=== PATIENT | male | born 1980 | race Caucasian/White ===

== ENCOUNTER 2017-08-24 22:00 | Emergency (ER) | payer MEDICAID, SELFPAY ==
[2017-08-24 22:00] VITALS: BP 123/75; PULSE 67; RESP 18; TEMP 37.3; O2SAT 98; BMI 19.7
--- NOTE | 2017-08-24 22:50 | CT_ITS ---
STUDY: CT ABDOMEN AND PELVIS WITHOUT CONTRAST REASON FOR EXAM: Male, 36 years old. Right flank pain. RADIATION DOSAGE (If Supplied By Facility): CTDIvol = ( 6.04 ) mGy, DLP = ( 283.89 ) mGycm TECHNIQUE: Transaxial images were obtained from the dome of the diaphragm to the symphysis pubis without oral contrast, and without intravenous contrast. Sagittal and coronal images were reconstructed. Individualized dose optimization techniques were used for this CT. COMPARISON: None. FINDINGS: The visualized lung bases are unremarkable. The visualized portions of the heart are within normal limits. There is hepatomegaly with diffuse hepatic enlargement. The gallbladder is contracted. There are multiple benign calcified granulomata of the spleen. Normal pancreas. Normal bilateral adrenal glands. Normal right kidney. Normal left kidney. Normal visualized stomach. Normal small intestine. Normal colon. The appendix is visualized and appears normal. Normal abdominal aorta. Normal inferior vena cava. Normal retroperitoneum. Normal urinary bladder. There is no free fluid in the abdomen or pelvis. Normal abdominal wall. There is sclerosis of the sacroiliac joints. CT/Abdomen/Pelvis without Cont IMPRESSION: Hepatomegaly. Contracted gallbladder. No urinary stones or hydronephrosis. Electronically Signed: Isaac Edwards MD at 23:36 EDT , Service support ,
[2017-08-24] MEDS: Ketorolac 30 MG/ML Syringe IV (22:58)
[2017-08-24 23:04] LABS: Absolute Lymphocyte Count 2.31 X10^3/ul (0.83-4.51); Absolute Neutrophil Count 4.9 X10^3/uL (2.0-7.7); Basophil# 0.03 X10^3/uL; Basophil% 0.4 % (0-1); Eosinophil# 0.12 X10^3/uL; Eosinophils% 1.5 % (0-5); Hematocrit 38.6 % (40-54); Hemoglobin 12.5 g/dl (13.0-16.5); Lymphocyte # 2.31 X10^3/ul (4.0); Lymphocyte % 28.2 % (19-41); Mean Corp Hgb Conc 32.4 g/gl (32-36); Mean Corpuscular Hgb 27.1 pg (27.0-32.0); Mean Corpuscular Volume 83.7 fL (80-94); Mean Platelet Vol. 8.8 fl (6.2-12.0); Monocyte# 0.81 X10^3/uL; Monocyte% 9.9 % (0-10); Neutrophil # 4.89 X10^3/uL (2.7-7.7); Neutrophil % 59.8 % (47-70); Platelet Count 260 K/mm3 (150-450); RBC Distribution Width CV 14.3 % (11.6-14.6); Red Blood Count 4.61 M/mm3 (4.6-6.2); White Blood Count 8.2 K/mm3 (4.4-11.0)
[2017-08-24 23:06] LABS: POSITIVE COUNT NO; POSITIVE DIFFERENTIAL NO; POSITIVE MORPHOLOGY NO
[2017-08-24 23:16] LABS: Anion Gap 5 (5-15); BUN 10 mg/dL (7-18); BUN/Creat Ratio 10.9 RATIO (10-20); Calcium,Total 9.5 mg/dL (8.5-10.1); Chloride 106 mmol/L (98-107); Creatinine, Serum 0.92 mg/dL (0.70-1.30); EST Glomerular Filtration Rate 99 mL/min (>60); Est Glom Filt Rate - Afr Amer 119 mL/min (>60); Estimated Creatinine Clearance 92.32 ml/min; Glucose 93 mg/dL (74-106); Potassium 3.6 mmol/L (3.5-5.1); Sodium Level 142 mmol/L (136-145)
--- NOTE | 2017-08-24 23:55 | ED.VISSUMM ---
- ER Visit Summary Date of Service: 08/24/17 Chief Complaint: Right flank pain History of Present Illness: The patient is a 36 M who presents with right flank pain. This is been present for at least 2 months. He states it is worse with certain positions or laying on his side. It is isolated to the right lower back. This does not wrap around to the abdomen at all. He denies any nausea vomiting diarrhea dysuria frequency urgency. No fevers. Physical Examination: Afebrile vitals are normal Moist mucous membranes Heart regular rate and rhythm Lungs are clear Abdomen soft nontender Patient does have some right paraspinal lumbar tenderness Alert Test Results: CBC BMP notable for hemoglobin of 12.5. A urinalysis was ordered but the patient has not voided. CT of the flank shows hematocrit megaly and a contracted gallbladder otherwise normal. Emergency Department Course and Treatment: She was given Toradol here. 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 However his studies had returned. This does not show any acute surgical pathology he has a very benign abdomen and his symptoms have been present for 2 months. He was referred to family sent for outpatient follow-up. He understands to return for new or worsening symptoms. All questions answered bedside and the patient was discharged. Treatment Plan: [] Disposition: Discharge Impression: Right flank pain This note was generated with PureHistory dictation software. It may contain incorrect words, spelling, and punctuation that were not noted in review of the chart prior to signing ED Disposition - Plan for ED Patient: Chief Complaint: Flank Pain Referrals: Care Physician,No Primary [Primary Care Provider] -
--- NOTE | 2017-08-24 23:57 | ED.DEP ---
ED Disposition - Plan for ED Patient: Chief Complaint: Flank Pain Instructions: ED Flank Pain Uncertain Cause Referrals: Care Physician,No Primary [Primary Care Provider] - Jamal Ramos III, MD [STAFF PHYSICIAN] -
[2017-08-25 00:05] VITALS: BP 120/87; PULSE 67; RESP 16; O2SAT 97
== END 2017-08-25 00:06 | disposition home or self-care (01) ==
PROVIDERS: Emergency Provider Emergency Medicine
DX: R10.9 Unspecified abdominal pain (principal); M54.5 Low back pain; R16.0 Hepatomegaly, not elsewhere classified; K82.0 Obstruction of gallbladder; Z72.0 Tobacco use
CPT/HCPCS: 74176; 80048; 85025; 96374; 99283; J7030; A4216

== ENCOUNTER 2017-12-18 00:53 | Emergency (ER) | payer MEDICAID, SELFPAY ==
[2017-12-18 00:54] VITALS: BP 115/90; PULSE 86; RESP 18; TEMP 36.8; O2SAT 98; BMI 20.7
--- NOTE | 2017-12-18 01:15 | ED.DCSUM_ITS ---
History of Present Illness Chief Complaint: Eye Problem Informant: Patient Onset: Today - 1 hr ago noticed Context: Sudden Onset Timing: Continuous Quality: FB sens Location: right eye Current Severity: Mild Maximum Severity: Mild Worsened by: rubbing Relieved by: nothing Associated Symptoms: watering. no vision chg. Narrative: no contacts. [place] I discomfort when he was going to bed, noticed a piece of grass in his eye when he looked in the mirror. Unknown how it got there, possibly when he was driving with the windows open on the way home, a piece of grass fluid and. Past Medical History - Allergies and Home Meds Allergies/Adverse Reactions: Allergies No Known Allergies Allergy (Verified 08/24/17 22:01) Primary Care Physician: Care Physician,No Primary [Primary Care Provider] - Past Medical History: None Smoking Status: Never smoker Review of Systems General: Denies: Fever Eyes: Denies: Visual changes - bilaterally, Diplopia Physical Exam Vital Signs/Narrative: Vital Signs Temp Pulse Resp BP Pulse Ox 12/18/17 00:54 98.3 F 86 18 115/90 H 98 Inital Vital Signs reviewed: Yes General: Well nourished, Well developed Head: Normocephalic, Atraumatic Eyes: Perrl, EOMI, - - Nursing removed a small piece of grass from the patient' s eye prior to my evaluation. Grossly the eye is normal. The eyelid was everted. No residual foreign bodies. Slit-lamp exam performed with and without fluorescein. Anterior chamber deep and quiet. No dye uptake on the cornea. Negative Olvin sign. No significant conjunctival dye uptake. No residual foreign bodies. Skin: Normal color, No rash Neurological: Alert, Oriented x3, Cranial nerves II-XII grossly intact, Normal Strength, Normal Sensation, Normal Gait Diagnostic/Tx/Re-eval - Medical Decision Making Patient reassured. No need for antibiotic ointment or ophthalmologic follow-up unless he has delayed onset of vision problems. ED Disposition - Plan for ED Patient: Disposition: Home or Assisted Living Chief Complaint: Eye Problem Diagnosis: Foreign body of right eye Instructions: ED Foreign Body Cornea Referrals: Jacqui Jimenez MD [STAFF PHYSICIAN] - As Needed
[2017-12-18] MEDS: Fluorescein 1 MG STRIP 1 STRIP RIGHT EYE (01:20)
== END 2017-12-18 01:23 | disposition home or self-care (01) ==
LOC: ED 01:22
PROVIDERS: Emergency Provider Emergency Medicine
DX: T15.01XA Foreign body in cornea, right eye, initial encounter (principal); W45.8XXA Other foreign body or object entering through skin, initial encounter; Y93.9 Activity, unspecified; Y92.89 Other specified places as the place of occurrence of the external cause; Y99.9 Unspecified external cause status
CPT/HCPCS: 99282

== ENCOUNTER 2022-06-28 19:45 | Inpatient (IN) | payer MEDICAID, SELFPAY ==
[2022-06-28 19:46] VITALS: BP 114/82; PULSE 77; RESP 18; TEMP 36.3; O2SAT 100; BMI 22.4
[2022-06-28 19:48] VITALS: BP 114/82; PULSE 77; RESP 18; TEMP 36.3; O2SAT 100
[2022-06-28 20:24] LABS: Absolute Lymphocyte Count 2.07 X10^3/uL (0.83-4.51); Absolute Neutrophil Count 5.1 X10^3/uL (2.0-7.7); Basophil# 0.04 X10^3/uL; Basophil% 0.5 % (0-1); Eosinophil# 0.28 X10^3/uL; Eosinophils% 3.3 % (0-5); Hematocrit 42.9 % (40-54); Hemoglobin 13.2 g/dL (13.0-16.5); Lymphocyte # 2.07 X10^3/ul (0.83-4.51); Lymphocyte % 24.4 % (19-41); Mean Corp Hgb Conc 30.8 g/dL (32-36); Mean Corpuscular Volume 84.6 fL (80-94); Mean Platelet Vol. 8.8 fl (6.2-12.0); Monocyte# 0.93 X10^3/uL; NRBC Flagged by Analyzer 0 % (0-5); Neutrophil # 5.12 X10^3/uL (2.7-7.7); Neutrophil % 60.3 % (47-70); Platelet Count 342 K/mm3 (150-450); RBC Distribution Width CV 15.9 % (11.6-14.6); RBC Distribution Width SD 49.6 fl (35.1-43.9); Red Blood Count 5.07 M/mm3 (4.6-6.2); White Blood Count 8.5 K/mm3 (4.4-11.0)
--- NOTE | 2022-06-28 20:29 | EDS_ITS ---
HPI <JEN Escudero - Last Filed: 06/28/22 21:56> History of Present Illness Chief Complaint: Substance Abuse Narrative Narrative: Patient presenting today requesting to detox from fentanyl. He states that he uses about half a gram a day and snorts it, he denies any injection drug use. He last used this morning. He has been using for the past year. He denies any other substance use. He states that before this, he did not have a history of any drug abuse but started using because he was hanging out with the wrong crowd. He has tried to detox once before by himself but has never been to a detox facility. Denies having any chronic health conditions. PFS <JEN Escudero - Last Filed: 06/28/22 21:56> [facility] Medical History Fentanyl dependence Smoker Home Medications NK 06/28/22 [History Last Taken Unknown] Allergy/AdvReac Type Severity Reaction Status Date / Time No Known Allergies Allergy Verified 06/28/22 23:18 Family History (Updated 06/28/22 @ 22:[address] Suhas Cantu MD) Other Heart disease Social History Smoking Status: Current every day smoker tobacco type: cigarettes ROS <JEN Escudero - Last Filed: 06/28/22 21:56> ROS ED Constitutional Constitutional ED: Denies chills, fever(s) or sweats Cardiovascular Cardiovascular: Denies chest pain or palpitations Respiratory/Chest Respiratory/Chest: Denies cough or dyspnea Gastrointestinal Gastrointestinal: Denies abdominal pain, nausea or vomiting Musculoskeletal Musculoskeletal: Denies arthralgias or myalgias Integumentary Denies abscess, Abrasions or rash Neurologic Neurologic: Denies confusion, dizziness or weakness Psychiatric Psychiatric: Denies anxiety, depression, suicidal ideation or suicidal thoughts EXAM <JEN Escudero - Last Filed: 06/28/22 21:56> Physical Exam Const Vital Signs: 06/28/22 19:46 06/28/22 19:48 Temperature 97.4 F L 97.4 F L Temperature Source Temporal Temporal Pulse Rate 77 77 Respiratory Rate 18 18 Blood Pressure 114/82 H 114/82 H Blood Pressure Mean 92 92 Pulse Ox 100 100 Oxygen Delivery Method Room Air Room Air Positive well nourished, well developed and no apparent distress General Appearance ED: well developed HEENT Reports normocephalic and head/scalp atraumatic Mouth ED: Yes moist mucous membranes normal Eyes PERRL and EOMs intact bilaterally Neck full ROM and supple Chest Wall inspection of chest normal Resp normal respiratory effort and clear to auscultation bilaterally Cardio regular rate and regular rhythm GI soft to palpation, non-tender, non-distended and no masses Back/Spine normal ROM and normal to inspection Extremity normal to inspection and full ROM Neuro oriented x3, CN's II-XII intact bilaterally, moves all extremities, no focal motor deficits and no sensory deficits noted Sensorium / Orientation: awake and alert Psych mental status grossly normal and thought process normal Skin no rashes or lesions noted and no wounds <Dr. Heber Pratt DO - Last Filed: 06/29/22 01:13> Physical Exam Const Vital Signs: 06/28/22 19:46 06/28/22 19:48 Temperature 97.4 F L 97.4 F L Temperature Source Temporal Temporal Pulse Rate 77 77 Respiratory Rate 18 18 Blood Pressure 114/82 H 114/82 H Blood Pressure Mean 92 92 Pulse Ox 100 100 Oxygen Delivery Method Room Air Room Air MDM <JEN Escudero - Last Filed: 06/28/22 21:56> [facility] MDM Narrative Medical decision making narrative: Patient presenting today requesting detox from fentanyl. He last used today. He uses about half a gram a day and snorts it. He is well-appearing and in no acute distress. He is not actively going through withdrawal at this time. He will be discussed with the hospitalist for admission and will be admitted in stable condition. Lab Data Attestation: I reviewed the patient's lab results. Labs: Laboratory Results - last 24 hr 06/28/22 06/28/22 06/28/22 20:14 20:14 20:14 WBC 8.5 RBC 5.07 Hgb 13.2 Hct 42.9 MCV 84.6 MCH 26.0 L MCHC 30.8 L RDW Std Deviation 49.6 H RDW Coeff of John 15.9 H Plt Count 342 MPV 8.8 Immature Gran % (Auto) 0.500 Neut % (Auto) 60.3 Lymph % (Auto) 24.4 Nicholas % (Auto) 11.0 H Eos % (Auto) 3.3 Baso % (Auto) 0.5 Absolute Neuts (auto) 5.1 Absolute Lymphs (auto) 2.07 Nucleated RBC % 0 Sodium 139 Potassium 3.4 L Chloride 105 Carbon Dioxide 29.0 Anion Gap 5 BUN 10 Creatinine 0.77 Estim Creat Clear Calc 115.83 Est GFR (MDRD) Af Amer 142 Est GFR (MDRD) Non-Af 117 BUN/Creatinine Ratio 12.9 Glucose 98 Calcium 9.0 Urine Opiates Screen Urine Methadone Screen Ur Barbiturates Screen Ur Phencyclidine Scrn Ur Amphetamines Screen MDMA (Ecstasy) Screen U Benzodiazepines Scrn Urine Cocaine Screen U Cannabinoids Screen Ur Drug Screen Comment Ethyl Alcohol < 3.0 06/28/22 20:35 WBC RBC Hgb Hct MCV MCH MCHC RDW Std Deviation RDW Coeff of John Plt Count MPV Immature Gran % (Auto) Neut % (Auto) Lymph % (Auto) Nicholas % (Auto) Eos % (Auto) Baso % (Auto) Absolute Neuts (auto) Absolute Lymphs (auto) Nucleated RBC % Sodium Potassium Chloride Carbon Dioxide Anion Gap BUN Creatinine Estim Creat Clear Calc Est GFR (MDRD) Af Amer Est GFR (MDRD) Non-Af BUN/Creatinine Ratio Glucose Calcium Urine Opiates Screen NEGATIVE Urine Methadone Screen NEGATIVE Ur Barbiturates Screen NEGATIVE Ur Phencyclidine Scrn NEGATIVE Ur Amphetamines Screen POSITIVE H MDMA (Ecstasy) Screen NEGATIVE U Benzodiazepines Scrn NEGATIVE Urine Cocaine Screen NEGATIVE U Cannabinoids Screen NEGATIVE Ur Drug Screen Comment Ethyl Alcohol <Dr. Heber Pratt, DO - Last Filed: 06/29/22 01:13> [facility] Lab Data Labs: Laboratory Results - last 24 hr 06/28/22 06/28/22 06/28/22 20:14 20:14 20:14 WBC 8.5 RBC 5.07 Hgb 13.2 Hct 42.9 MCV 84.6 MCH 26.0 L MCHC 30.8 L RDW Std Deviation 49.6 H RDW Coeff of John 15.9 H Plt Count 342 MPV 8.8 Immature Gran % (Auto) 0.500 Neut % (Auto) 60.3 Lymph % (Auto) 24.4 Nicholas % (Auto) 11.0 H Eos % (Auto) 3.3 Baso % (Auto) 0.5 Absolute Neuts (auto) 5.1 Absolute Lymphs (auto) 2.07 Nucleated RBC % 0 Sodium 139 Potassium 3.4 L Chloride 105 Carbon Dioxide 29.0 Anion Gap 5 BUN 10 Creatinine 0.77 Estim Creat Clear Calc 115.83 Est GFR (MDRD) Af Amer 142 Est GFR (MDRD) Non-Af 117 BUN/Creatinine Ratio 12.9 Glucose 98 Calcium 9.0 Urine Opiates Screen Urine Methadone Screen Ur Barbiturates Screen Ur Phencyclidine Scrn Ur Amphetamines Screen MDMA (Ecstasy) Screen U Benzodiazepines Scrn Urine Cocaine Screen U Cannabinoids Screen Ur Drug Screen Comment Ethyl Alcohol < 3.0 06/28/22 20:35 WBC RBC Hgb Hct MCV MCH MCHC RDW Std Deviation RDW Coeff of John Plt Count MPV Immature Gran % (Auto) Neut % (Auto) Lymph % (Auto) Nicholas % (Auto) Eos % (Auto) Baso % (Auto) Absolute Neuts (auto) Absolute Lymphs (auto) Nucleated RBC % Sodium Potassium Chloride Carbon Dioxide Anion Gap BUN Creatinine Estim Creat Clear Calc Est GFR (MDRD) Af Amer Est GFR (MDRD) Non-Af BUN/Creatinine Ratio Glucose Calcium Urine Opiates Screen NEGATIVE Urine Methadone Screen NEGATIVE Ur Barbiturates Screen NEGATIVE Ur Phencyclidine Scrn NEGATIVE Ur Amphetamines Screen POSITIVE H MDMA (Ecstasy) Screen NEGATIVE U Benzodiazepines Scrn NEGATIVE Urine Cocaine Screen NEGATIVE U Cannabinoids Screen NEGATIVE Ur Drug Screen Comment Ethyl Alcohol Treatment and Re-Evaluation :: I have personally performed a face to face assessment of the patient and have reviewed the ELIAZAR Note. I performed a substantive portion of the visit including all aspects of the following. My gomez findings include: History: Patient presents requesting detox from fentanyl. Patient states he uses approximately 1/2 g of fentanyl per day. Patient states he snorts this. Patient states he has been using for the last year. Patient states that he has quit in the past but has never been through formal detox. Patient denies any suicidal or homicidal ideations. Patient denies any chest pain or shortness of breath. Patient denies any nausea or vomiting. Exam: Vital signs are stable. Patient is afebrile. Patient is in no acute distress. Oral mucosa is pink and moist. Neck is supple. Trachea is midline. There is no JVD. Heart was regular rate and rhythm. Lungs are clear and equal bilaterally. Abdomen is soft. Bowel sounds are normal. There is no tenderness. Cranial nerves II through XII are intact. There are no focal motor or sensory deficits noted. Medical Decision Making: Basic labs will be obtained for medical screening. CBC will be obtained to assess for leukocytosis and anemia. Basic metabolic profile will be obtained to assess for electrolyte abnormality and renal function. Urine tox urine will be obtained to assess for substance abuse. Serum alcohol level will be obtained to assess for alcohol intoxication. CBC was reviewed and was within normal limits. Basic metabolic profile was reviewed and was essentially within normal limits. Urine tox screen was reviewed and was positive for amphetamines. Serum alcohol level was reviewed and was normal at less than 3. Case was discussed with the hospitalist. He will admit the patient to his service for detox. Patient understood and was agreeable with the plan. All questions were answered. Discharge Plan Dx/Rx/DC Orders Clinical Impression: Substance abuse, Desire for detoxification Disposition Disposition: Acute Care Hospital [facility] Discharge Date/Time: 06/28/22 23:13
[2022-06-28 20:40] LABS: Alcohol, Blood (Medical)-Serum < 3.0 mg/dL
[2022-06-28 20:41] LABS: Anion Gap 5 (5-15); BUN 10 mg/dL (7-18); BUN/Creat Ratio 12.9 RATIO (10-20); Chloride 105 mmol/L (98-107); Creatinine, Serum 0.77 mg/dL (0.70-1.30); EST Glomerular Filtration Rate 117 mL/min (>60); Est Glom Filt Rate - Afr Amer 142 mL/min (>60); Estimated Creatinine Clearance 115.83 ml/min; Glucose 98 mg/dL (74-106); Potassium 3.4 mmol/L (3.5-5.1); Sodium Level 139 mmol/L (136-145)
[2022-06-28 21:24] LABS: Amphetamine Urine VISTA POSITIVE (<1000 ng/mL); Barbiturate Urine VISTA NEGATIVE (< 200 ng/mL); Benzodiazepine Urine VISTA NEGATIVE (< 200 ng/mL); Cocaine Urine VISTA NEGATIVE (< 300 ng/mL); Ecstacy Urine VISTA NEGATIVE (< 500 ng/mL); Methadone Urine VISTA NEGATIVE (< 300 ng/mL); PCP Urine VISTA NEGATIVE (< 25 ng/mL); THC Urine VISTA NEGATIVE (< 50 ng/mL); Vista UDS pH Range 6
--- NOTE | 2022-06-28 21:56 | PCM.HP.STD ---
HPI - General General Date of Admission: 06/28/22 Date of Service: 06/28/22 Chief Complaint: Desire for detoxification HPI Narrative JUAN CARLOS DANIELS, is a 41 M with previously no medical history presenting to the emergency department for help with opioid detoxification. Patient drug of choice is fentanyl. He has been using fentanyl for about 1 year. He uses about half of a gram of fentanyl per day. He snorts it. Last time he used was on the morning of the day of presentation. While at the emergency department patient began to have some withdrawal symptoms of feeling hot and cold. He reports some mild anxiety and restless legs. About a month or 2 ago he tried to self detox but he could not. [facility] Medical History Fentanyl dependence Smoker Medical History no medical history no medical history Home Medications NK 06/28/22 [History Last Taken Unknown] Allergy/AdvReac Type Severity Reaction Status Date / Time No Known Allergies Allergy Verified 06/28/22 23:18 Family History Other Heart disease Surgical History no surgical history no surgical history Social History Smoking Status: Current every day smoker tobacco type: cigarettes ROS ROS Narrative Pertinent positives and pertinent negatives as noted in HPI. All other systems were reviewed and are negative Vital Signs Vital Signs Vital Signs: 06/28/22 19:46 06/28/22 19:48 Temperature 97.4 F L 97.4 F L Temperature Source Temporal Temporal Pulse Rate 77 77 Respiratory Rate 18 18 Blood Pressure 114/82 H 114/82 H Blood Pressure Mean 92 92 Pulse Ox 100 100 Oxygen Delivery Method Room Air Room Air Weight Weight: 64.864 kg Body Mass Index (BMI) 22.4 Physical Exam Narrative Physical exam: General: Well-nourished, well-developed. Head: Normocephalic, atraumatic, no tenderness Eyes: Vision is grossly intact. EOMI ENT, no trauma, moist mucous membranes, no rhinorrhea Neck: Nontender, No thyromegaly. CVS: Regular rate and rhythm. S1-S2 present. No murmur, gallop or rub. Respiratory : clear to auscultation bilaterally, chest wall nontender Abdomen: Soft, nontender, nondistended, normal bowel sounds, no masses : Deferred Back: Nontender, no CVA tenderness, no midline spinal tenderness, deformities, step-offs Extremities: Nontender full range of motion, no trauma Skin: Normal color, no trauma, abrasions Neuro: Alert, oriented, cranial nerves II through XII grossly intact. Psychiatry: Normal mood. Normal affect. Not depressed. Not anxious. Results Medical Records Data Attestation: I reviewed the patient's medical records Lab / Micro Data Attestation: I reviewed the patient's lab results. Result Diagrams: 06/28/22 20:14 06/28/22 20:14 Labs: Laboratory Results - last 24 hr 06/28/22 20:14: WBC 8.5, RBC 5.07, Hgb 13.2, Hct 42.9, MCV 84.6, MCH 26.0 L, MCHC 30.8 L, RDW Std Deviation 49.6 H, RDW Coeff of John 15.9 H, Plt Count 342, MPV 8.8, Immature Gran % (Auto) 0.500, Neut % (Auto) 60.3, Lymph % (Auto) 24.4, [place] % (Auto) 11.0 H, Eos % (Auto) 3.3, Baso % (Auto) 0.5, Absolute Neuts (auto) 5.1, Absolute Lymphs (auto) 2.07, Nucleated RBC % 0 06/28/22 20:14: Sodium 139, Potassium 3.4 L, Chloride 105, Carbon Dioxide 29.0, Anion Gap 5, BUN 10, Creatinine 0.77, Estim Creat Clear Calc 115.83, Est GFR (MDRD) Af Amer 142, Est GFR (MDRD) Non-Af 117, BUN/Creatinine Ratio 12.9, Glucose 98, Calcium 9.0 06/28/22 20:14: Ethyl Alcohol < 3.0 06/28/22 20:35: Urine Opiates Screen NEGATIVE, Urine Methadone Screen NEGATIVE, Ur Barbiturates Screen NEGATIVE, Ur Phencyclidine Scrn NEGATIVE, Ur Amphetamines Screen POSITIVE H, MDMA (Ecstasy) Screen NEGATIVE, U Benzodiazepines Scrn NEGATIVE, Urine Cocaine Screen NEGATIVE, U Cannabinoids Screen NEGATIVE, Ur Drug Screen Comment Assessment & Plan Assessment/Plan (1) Substance abuse: (2) Desire for detoxification: PLAN: Plan Opioid dependence and withdrawal Patient be started on Subutex and other adjunctive medications: Gabapentin as needed; dicyclomine as needed; Vistaril as needed; methocarbamol as needed; clonidine as needed; Imodium as needed; trazodone as needed and Zofran as needed. Monitor COWS and CINA score Tobacco abuse Counseled Nicotine patch prescribed. DVT prophylaxis Low risk Encourage to ambulate Charges/Coding Visit Charges Inpatient E&M: 84955 Init Hosp L2
[2022-06-28 22:56] VITALS: BP 116/79; PULSE 82; RESP 18; TEMP 36.6; O2SAT 96
[2022-06-28 23:19] VITALS: BMI 21.4
[2022-06-28] MEDS: hydrOXYzine PAM 25 MG Capsule 50 MG PO (23:38)
[2022-06-28 23:40] VITALS: BP 109/70; PULSE 64; RESP 16; TEMP 36.9; O2SAT 100
[2022-06-29 06:50] VITALS: BP 97/53; PULSE 64; RESP 16; TEMP 36.6; O2SAT 98
[2022-06-29] MEDS: Buprenorphine HCl 2 MG TAB.SUBL SL ×3 (06:59→22:15)
--- NOTE | 2022-06-29 07:40 | PCM.PN.HOSP ---
Reason for Visit Reason for Visit: Diagnoses Other psychoactive substance abuse, uncomplicated (06/28/22) Subjective Subjective No problems overnight. Objective Data Objective Data Vital Signs: Vital Signs Temp Pulse Resp BP Pulse Ox O2 Del Method 36.6 C 64 16 97/53 L 98 Room Air 06/29/22 06:50 06/29/22 06:50 06/29/22 06:50 06/29/22 06:50 06/29/22 06:50 06/29/22 06:50 Oxygen Delivery Method Room Air Weight: 61.9 kg Body Mass Index (BMI) 21.4 Intake & Output: Intake and Output for Last 24 Hours 06/27/22 06/28/22 06/29/22 23:59 23:59 23:59 Intake Total 220 / 220 0 / 0 Balance 220 / 220 0 / 0 Lab / Micro Data Result Diagrams: 06/28/22 20:14 06/28/22 20:14 Labs: Laboratory Results - last 24 hr 06/28/22 20:14: WBC 8.5, RBC 5.07, Hgb 13.2, Hct 42.9, MCV 84.6, MCH 26.0 L, MCHC 30.8 L, RDW Std Deviation 49.6 H, RDW Coeff of John 15.9 H, Plt Count 342, MPV 8.8, Immature Gran % (Auto) 0.500, Neut % (Auto) 60.3, Lymph % (Auto) 24.4, [place] % (Auto) 11.0 H, Eos % (Auto) 3.3, Baso % (Auto) 0.5, Absolute Neuts (auto) 5.1, Absolute Lymphs (auto) 2.07, Nucleated RBC % 0 06/28/22 20:14: Sodium 139, Potassium 3.4 L, Chloride 105, Carbon Dioxide 29.0, Anion Gap 5, BUN 10, Creatinine 0.77, Estim Creat Clear Calc 115.83, Est GFR (MDRD) Af Amer 142, Est GFR (MDRD) Non-Af 117, BUN/Creatinine Ratio 12.9, Glucose 98, Calcium 9.0 06/28/22 20:14: Ethyl Alcohol < 3.0 06/28/22 20:35: Urine Opiates Screen NEGATIVE, Urine Methadone Screen NEGATIVE, Ur Barbiturates Screen NEGATIVE, Ur Phencyclidine Scrn NEGATIVE, Ur Amphetamines Screen POSITIVE H, MDMA (Ecstasy) Screen NEGATIVE, U Benzodiazepines Scrn NEGATIVE, Urine Cocaine Screen NEGATIVE, U Cannabinoids Screen NEGATIVE, Ur Drug Screen Comment Physical Exam Const alert and no apparent distress HEENT head/scalp atraumatic Neuro Sensorium / Orientation: awake and alert Assessment & Plan Assessment/Plan (1) Opiate withdrawal: PLAN: 2/2 fentanyl withdrawal Patient be started on Subutex and other adjunctive medications: Gabapentin as needed; dicyclomine as needed; Vistaril as needed; methocarbamol as needed; clonidine as needed; Imodium as needed; trazodone as needed and Zofran as needed. Monitor COWS and CINA score pt will need program set up prior to discharge. Addiction medicine to evaluate. PLAN: Plan Tobacco abuse Counseled Nicotine patch prescribed. DVT prophylaxis Low risk Encourage to ambulate Charges/Coding Visit Charges Inpatient E&M: 52262 Subs Hosp L1
[2022-06-29 08:08] VITALS: BP 113/73; PULSE 66; RESP 16; TEMP 37; O2SAT 98
[2022-06-29 12:04] VITALS: BP 130/90; PULSE 65; RESP 16; TEMP 37; O2SAT 100
[2022-06-29 22:13] VITALS: BP 121/85; PULSE 67; RESP 18; TEMP 36.8; O2SAT 100
[2022-06-29] MEDS: traZODone 100 MG Tablet PO (22:15)
[2022-06-29] MEDS: Methocarbamol 750 MG Tablet 1500 MG PO (22:17)
[2022-06-29] MEDS: Dicyclomine 10 MG Capsule 20 MG PO (22:17)
[2022-06-30 06:29] VITALS: BP 102/69; PULSE 62; RESP 16; TEMP 36.7; O2SAT 96
[2022-06-30] MEDS: Buprenorphine HCl 2 MG TAB.SUBL SL ×3 (06:30→22:10)
[2022-06-30] MEDS: hydrOXYzine PAM 25 MG Capsule 50 MG PO (06:33)
[2022-06-30] MEDS: cloNIDine HCl 0.1 MG Tablet PO (06:33)
[2022-06-30 08:01] VITALS: BP 92/67; PULSE 65; RESP 18; TEMP 36.8; O2SAT 95
--- NOTE | 2022-06-30 09:48 | PCM.PN.HOSP ---
Reason for Visit Reason for Visit: Diagnoses Opioid use, unspecified with withdrawal (06/28/22) Other psychoactive substance abuse, uncomplicated (06/28/22) Subjective Subjective Patient is a 41-year-old gentleman with history of opioid dependence admitted with withdrawal from fentanyl admitted to regular nursing floor where he is currently undergoing medical stabilization Objective Data Objective Data Vital Signs: Vital Signs Temp Pulse Resp BP Pulse Ox O2 Del Method 98.2 F 65 18 92/67 95 Room Air 06/30/22 08:01 06/30/22 08:01 06/30/22 08:01 06/30/22 08:01 06/30/22 08:01 06/30/22 08:01 Oxygen Delivery Method Room Air Weight: 61.9 kg Body Mass Index (BMI) 21.4 Intake & Output: Intake and Output for Last 24 Hours 06/28/22 06/29/22 06/30/22 23:59 23:59 23:59 Intake Total 220 / 220 650 / 1350 900 / 900 Balance 220 / 220 650 / 1350 900 / 900 Lab / Micro Data Result Diagrams: 06/28/22 20:14 06/28/22 20:14 Physical Exam Narrative GENERAL: cooperative HEENT: Atraumatic; normocephalic EYES; Anicteric, Normal Conjunctiva NECK; supple, normal thyroid, RESPIRATORY: Diminished to auscultation CARDIOVASCULAR: Regular S1 S2, GI: soft, normoactive bowel sounds, : No Renal angle tenderness; EXTREMITIES: No edema, no clubbing, MUSCULOSKELETAL: no muscle wasting NEURO: Awake; no lateralizing signs. SKIN: No Rash PSYCH; Flat affect Assessment & Plan Assessment/Plan (1) Opiate withdrawal: PLAN: Plan Patient is a 41-year-old gentleman with history of opioid dependence admitted with withdrawal from fentanyl admitted to regular nursing floor where he is currently undergoing medical stabilization 1. Acute opioid withdrawal - Patient has been admitted to regular nursing floor, managed buprenorphine taper along with other adjunctive medications for medical stabilization 2. Tobacco dependence - Counseled on cessation, offered nicotine patch for tobacco cravings 3. DVT prophylaxis ? Low risk did encourage ambulation Time spent in the patient's overall evaluation,decision-making process, review of diagnostic data, adjustment of management, discussion with other providers, nursing nursing and ancillary staff involved in patient's care documentation, 35 Minutes Charges/Coding Visit Charges Inpatient E&M: 42157 Subs Hosp L2
--- NOTE | 2022-06-30 10:56 | ADDICTION ---
This typewriter mechanic met with PT to conduct ASAM, MSE, AUDIT, DUDIT assessments and to plan for d/c. PT A+Ox4 and participated actively. All assessments completed and placed in PT's chart. PT plans to f/u with [facility] for outpatient and MAT services. PT did not indicate a need for transportation post d/c from [facility].
[2022-06-30 15:11] VITALS: BP 96/69; PULSE 67; RESP 18; TEMP 36.9; O2SAT 96
[2022-06-30 22:05] VITALS: BP 108/73; PULSE 67; RESP 16; TEMP 36.9; O2SAT 97
[2022-06-30] MEDS: traZODone 100 MG Tablet PO (22:10)
[2022-06-30] MEDS: Methocarbamol 750 MG Tablet 1500 MG PO (22:10)
[2022-07-01 06:06] VITALS: BP 110/66; PULSE 65; RESP 14; TEMP 36.8; O2SAT 94
[2022-07-01] MEDS: Buprenorphine HCl 2 MG TAB.SUBL SL (06:10)
[2022-07-01] MEDS: Methocarbamol 750 MG Tablet 1500 MG PO (06:10)
--- NOTE | 2022-07-01 07:36 | PN.HOSP_ITS ---
Reason for Visit Reason for Visit: Diagnoses Opioid use, unspecified with withdrawal (06/28/22) Other psychoactive substance abuse, uncomplicated (06/28/22) Subjective Subjective Symptoms well controlled. Plan is for patient to be assessed for possible discharge Objective Data Objective Data Vital Signs: Vital Signs Temp Pulse Resp BP Pulse Ox O2 Del Method 98.3 F 65 14 110/66 94 Room Air 07/01/22 06:06 07/01/22 06:06 07/01/22 06:06 07/01/22 06:06 07/01/22 06:06 07/01/22 06:06 Oxygen Delivery Method Room Air Weight: 61.9 kg Body Mass Index (BMI) 21.4 Intake & Output: Intake and Output for Last 24 Hours 06/29/22 06/30/22 07/01/22 23:59 23:59 23:59 Intake Total 650 / 1350 1200 / 1200 Balance 650 / 1350 1200 / 1200 Lab / Micro Data Result Diagrams: 06/28/22 20:14 06/28/22 20:14 Physical Exam Narrative GENERAL: cooperative HEENT: Atraumatic; normocephalic EYES; Anicteric, Normal Conjunctiva NECK; supple, normal thyroid, RESPIRATORY: Diminished to auscultation CARDIOVASCULAR: Regular S1 S2, GI: soft, normoactive bowel sounds, : No Renal angle tenderness; EXTREMITIES: No edema, no clubbing, MUSCULOSKELETAL: no muscle wasting NEURO: Awake; no lateralizing signs. SKIN: No Rash PSYCH; Flat affect Assessment & Plan Assessment/Plan (1) Opiate withdrawal: PLAN: Plan Patient is a 41-year-old gentleman with history of opioid dependence admitted with withdrawal from fentanyl admitted to regular nursing floor where he is currently undergoing medical stabilization 1. Acute opioid withdrawal - Patient has been admitted to regular nursing floor, managed buprenorphine taper along with other adjunctive medications for medical stabilization 2. Tobacco dependence - Counseled on cessation, offered nicotine patch for tobacco cravings 3. DVT prophylaxis ? Low risk did encourage ambulation Time spent in the patient's overall evaluation,decision-making process, review of diagnostic data, adjustment of management, discussion with other providers, nursing nursing and ancillary staff involved in patient's care documentation, 25 Minutes Charges/Coding Visit Charges Inpatient E&M: 12628 [facility] L1
[2022-07-01 08:12] VITALS: BP 96/63; PULSE 67; RESP 18; TEMP 36.7; O2SAT 93
--- NOTE | 2022-07-01 08:58 | PCM.DC.SUM ---
Providers Date of Admission: 06/28/22 Date of Discharge: 07/01/22 Primary Care Physician: Floresita Primary Care Phys Reason For Visit: DESIRE FOR DETOXIFICATION Diagnosis Discharge Diagnosis (1) Opiate withdrawal: Status: Acute Code(s): F11.93 - Opioid use, unspecified with withdrawal Plan Patient is a 41-year-old gentleman with history of opioid dependence admitted with withdrawal from fentanyl admitted to regular nursing floor where he is currently undergoing medical stabilization 1. Acute opioid withdrawal - Patient has been admitted to regular nursing floor, managed buprenorphine taper along with other adjunctive medications for medical stabilization 2. Tobacco dependence - Counseled on cessation, offered nicotine patch for tobacco cravings 3. DVT prophylaxis ? Low risk did encourage ambulation Time spent in the patient's overall evaluation,decision-making process, review of diagnostic data, adjustment of management, discussion with other providers, nursing nursing and ancillary staff involved in patient's care documentation, 32 Minutes Medications at Discharge Home Medications NK 06/28/22 Hospital Course Summary of Care Provided Minutes Spent on Discharge: 32 Physical Exam Narrative GENERAL: cooperative HEENT: Atraumatic; normocephalic EYES; Anicteric, Normal Conjunctiva NECK; supple, normal thyroid, RESPIRATORY: Diminished to auscultation CARDIOVASCULAR: Regular S1 S2, GI: soft, normoactive bowel sounds, : No Renal angle tenderness; EXTREMITIES: No edema, no clubbing, MUSCULOSKELETAL: no muscle wasting NEURO: Awake; no lateralizing signs. SKIN: No Rash PSYCH; Flat affect Weight / BMI Weight Weight: 61.9 kg Body Mass Index (BMI) 21.4 ABG / Lab / Microbiology Data Result Diagrams: 06/28/22 20:14 06/28/22 20:14 D/C Instructions Discharge Diet: No restrictions Discharge Activity: Return to Normal Activity Call your doctor if you observe: Fever of 101 or Higher, Shortness of breath, Fainting spells and Chest pain Meaningful Use Info Meaningful Use Diagnoses (Choose all that apply): None applicable Discharge Plan Admission Admit Date/Time: 06/28/22 21:56 Attending Provider: Riky Kelley Primary Care Provider: Care Physician,No Primary Consulting Providers: Suhas Cantu Eric Discharge Orders/Prescriptions Prescriptions: No Action NK Referrals / Follow Up: Care Physician,No Primary [Primary Care Provider] - Disposition Disposition (needs filled in before D/C Order can be placed): Home, Self Care Charges/Coding Visit Charges Inpatient E&M: 81437 [facility] Hosp >30min
[2022-07-01 09:31] VITALS: BP 106/60; PULSE 74; RESP 18; TEMP 37.2
== END 2022-07-01 09:44 | disposition home or self-care (01) | DRG 773 ==
LOC: ED 21:56 → MS3 06-29 03:17
PROVIDERS: Physician Assistant; Admitting Provider Hospitalist; Emergency Provider Emergency Medicine; Visit Provider Internal Medicine
DX: F11.23 Opioid dependence with withdrawal (principal); F17.210 Nicotine dependence, cigarettes, uncomplicated
CPT/HCPCS: 36415; 80048; 80307; 82077; 85025; 97802; 99283; 99406

== ENCOUNTER 2022-07-02 08:58 | Emergency (ER) | payer MEDICAID, SELFPAY ==
[2022-07-02 08:59] VITALS: BP 105/84; PULSE 92; RESP 16; TEMP 35.5; O2SAT 97; BMI 20.8
--- NOTE | 2022-07-02 09:09 | EX.ED.DYSGE1 ---
HPI History of Present Illness Chief Complaint: Substance Abuse Detail of Chief Complaint: Withdrawal from opiates Informant: patient Narrative Narrative: Patient presents to the emergency department with symptoms of withdrawal from opiates. Patient states that he had been using fentanyl and came in for detox and was admitted for 3 days to our hospital. Patient was discharged from the hospital yesterday after being treated with Subutex. Patient apparently was not sent home with any medications and he can see a physician until tomorrow. Patient states he feels terrible. Patient complains of body aches and sweats. He denies any diarrhea. He said no vomiting. PFSH PFS Medical History Fentanyl dependence Smoker Home Medications NK 06/28/22 [History Last Taken Unknown] Allergy/AdvReac Type Severity Reaction Status Date / Time No Known Allergies Allergy Verified 07/02/22 09:01 Family History Other Heart disease Surgical History no surgical history Social History Smoking Status: Current every day smoker tobacco type: cigarettes ROS ROS ED Review of Systems ROS Unobtainable: other Constitutional Constitutional ED: Reports lethargy and sweats; Denies chills, fever(s) or weight loss Eyes Eyes: Denies blurry vision, change in vision or diplopia ENT ENT ED: Denies rhinorrhea or sore throat Cardiovascular Cardiovascular: Denies chest pain, orthopnea or racing heartbeat Respiratory/Chest Respiratory/Chest: Denies cough, dyspnea, dyspnea on exertion, orthopnea or sputum Gastrointestinal Gastrointestinal: Denies abdominal pain, diarrhea, nausea or vomiting Genitourinary Genitourinary ED: Denies dysuria, hematuria or urinary frequency Musculoskeletal Musculoskeletal: Reports myalgias; Denies arthralgias, back pain or neck pain Integumentary Denies abscess, Abrasions or rash Neurologic Neurologic: Denies headache(s) or weakness Psychiatric Psychiatric: Denies anxiety, depression or suicidal thoughts Endocrine Endocrinology: Denies polydipsia, polyphagia or polyuria Hematologic/Lymphatic Hematologic/Lymphatic: Denies easy bleeding, easy bruising or lymphadenopathy Allergic/Immunologic Allergic/Immunologic ED: Denies mouth swelling, tongue swelling or urticaria EXAM Physical Exam Const Vital Signs: 07/02/22 08:59 Temperature 96 F L Temperature Source Temporal Pulse Rate 92 Respiratory Rate 16 Blood Pressure 105/84 H Blood Pressure Mean 91 Pulse Ox 97 Oxygen Delivery Method Room Air Positive well nourished and well developed General Appearance ED: well developed and NAD HEENT Reports TM's clear and moist mucous membranes normocephalic and atraumatic; Negative for trauma or tenderness Tympanic Membrane ED: Yes TM's clear Eyes PERRL and EOMs intact bilaterally General Eye ED: Negative for pale conjunctiva or scleral icterus Neck no lymphadenopathy, supple and no JVD General: Negative for tenderness Chest Wall inspection of chest normal and palpation of chest normal Chest: Negative for tenderness Resp normal respiratory effort and clear to auscultation bilaterally Effort and Inspection: Negative for respiratory distress or pain with movement Auscultation: Negative for rhonchi, wheezes or diminished lung sounds Cardio regular rate, regular rhythm, S1 normal heart sound, S2 normal heart sound and no murmurs Peripheral Pulses: pulses 2+ throughout GI normal to inspection, nondistended, normoactive bowel sounds, soft to palpation, non-tender, non-distended and no masses Back/Spine no CVA tenderness and no thoracic nor lumbar tenderness Extremity normal to inspection General Extremety ED: Negative for edema General Extremity: Negative for edema Neuro oriented x3, CN's II-XII intact bilaterally, no sensory deficits noted and gait normal Sensorium / Orientation: awake, alert, oriented to person, oriented to place and oriented to time Motor Exam: strength 5/5 throughout and strength abnormal Psych mental status grossly normal Skin no rashes or lesions noted and no wounds MDM MDM MDM Narrative Medical decision making narrative: I discussed case with Dr. Covarrubias who is the addiction medicine physician that runs the program at our hospital. I will give patient 1 dose of 2 mg of buprenorphine. Patient will follow[facility]. Patient advised strongly not to use any illicit drugs as they would not be able to start him on meds if he did. Patient understands and states that he will not use. Discharge Plan Triage Chief Complaint: Substance Abuse ED Provider: Rehana Rainey Dx/Rx/DC Orders Clinical Impression: Opiate withdrawal Instructions: ED Opioid Withdrawal Prescriptions: No Action NK Primary Care Provider: Care Physician,No Primary Referrals: Care Physician,No Primary [Primary Care Provider] - Activity Restrictions/Additional Instructions: Follow-up with physician at [facility] tomorrow. Disposition Disposition: Home, Self Care
[2022-07-02 10:15] VITALS: BP 134/78; PULSE 78; RESP 16; TEMP 36.6; O2SAT 99
[2022-07-02] MEDS: Buprenorphine HCl 2 MG TAB.SUBL SL (10:15)
== END 2022-07-02 10:20 | disposition home or self-care (01) ==
PROVIDERS: Emergency Provider Emergency Medicine; Visit Provider Emergency Medicine
DX: F11.23 Opioid dependence with withdrawal (principal); F17.210 Nicotine dependence, cigarettes, uncomplicated
CPT/HCPCS: 99282

== ENCOUNTER 2022-10-06 18:03 | Emergency (ER) | payer MEDICAID, SELFPAY ==
[2022-10-06 18:04] VITALS: BP 112/88; PULSE 76; RESP 14; TEMP 36.6; O2SAT 98; BMI 20.6
[2022-10-06] MEDS: Ketorolac 30 MG/ML Syringe IV (20:54)
--- NOTE | 2022-10-06 21:00 | RAD_ITS ---
INDICATION: Pain EXAMINATION/TECHNIQUE: X-RAY - XR Chest 2 Views COMPARISON: None. Findings: Single frontal view of the chest. LUNG PARENCHYMA: Incidental azygous fissure containing azygous vein. No acute focal airspace disease or mass lesion. PLEURA: No pleural effusion. No pneumothorax. HEART/GREAT [place]SELS: Cardiomediastinal silhouette is unremarkable. BONES: Suggestion of pectus excavatum deformity. RAD/Chest PA and Lateral IMPRESSION: Chest with no acute disease. Electronically Signed: Horacio Bernstein MD at 21:17 EDT ,
[2022-10-06 21:02] LABS: Absolute Lymphocyte Count 2.22 X10^3/uL (0.83-4.51); Absolute Neutrophil Count 6.3 X10^3/uL (2.0-7.7); Basophil# 0.06 X10^3/uL; Basophil% 0.6 % (0-1); Eosinophil# 0.12 X10^3/uL; Eosinophils% 1.3 % (0-5); Hematocrit 41.3 % (40-54); Hemoglobin 12.8 g/dL (13.0-16.5); Lymphocyte # 2.22 X10^3/ul (0.83-4.51); Lymphocyte % 23.4 % (19-41); Mean Corpuscular Hgb 25.8 pg (27.0-32.0); Mean Corpuscular Volume 83.1 fL (80-94); Mean Platelet Vol. 8.7 fl (6.2-12.0); Monocyte% 7.4 % (0-10); NRBC Flagged by Analyzer 0 % (0-5); Neutrophil # 6.34 X10^3/uL (2.7-7.7); Neutrophil % 66.8 % (47-70); Platelet Count 489 K/mm3 (150-450); RBC Distribution Width CV 14.4 % (11.6-14.6); RBC Distribution Width SD 43.5 fl (35.1-43.9); Red Blood Count 4.97 M/mm3 (4.6-6.2); White Blood Count 9.5 K/mm3 (4.4-11.0)
[2022-10-06 21:18] LABS: Anion Gap 3 (5-15); BUN 5 mg/dL (7-18); BUN/Creat Ratio 5.5 RATIO (10-20); Calcium,Total 9.9 mg/dL (8.5-10.1); Chloride 102 mmol/L (98-107); Creatinine, Serum 0.91 mg/dL (0.70-1.30); EST Glomerular Filtration Rate 97 mL/min (>60); Est Glom Filt Rate - Afr Amer 117 mL/min (>60); Estimated Creatinine Clearance 89.44 ml/min; Glucose 121 mg/dL (74-106); Potassium 3.8 mmol/L (3.5-5.1); Sodium Level 135 mmol/L (136-145)
--- NOTE | 2022-10-06 21:44 | EDS_ITS ---
HPI History of Present Illness Chief Complaint: Other, Pain/Inj Informant: patient Onset/Context/Timing Onset: Weeks (1) Context: Gradual Onset Timing: Continuous Quality: Dull Location: Left sternoclavicular joint and left side of neck Worsened by: Palpation, movement Relieved by: Nothing Narrative Narrative: Presents with pain in the left side of his neck and over the left sternal clavicular junction that has been getting progressively worse over the last week. Patient states it is gradually getting worse. Patient states his pain has been constant. Patient describes his pain as dull. Patient states it is worse whenever he touches the area. Patient states his pain is worse whenever he moves his neck. Patient denies any fevers or chills. Patient denies any shortness of breath or cough. Patient denies any paresthesias or weakness. Patient denies any trauma or injury. Patient is currently on Suboxone from a opiate detox program. [facility] Medical History Fentanyl dependence Smoker Home Medications NK 06/28/22 [History Last Taken Unknown] Allergy/AdvReac Type Severity Reaction Status Date / Time No Known Allergies Allergy Verified 10/06/22 18:04 Family History Other Heart disease Social History Smoking Status: Current every day smoker tobacco type: cigarettes ROS ROS ED Constitutional Constitutional ED: Denies chills or fever(s) Eyes Eyes: Denies blurry vision or change in vision ENT ENT ED: Denies rhinorrhea or sore throat Cardiovascular Cardiovascular: Denies chest pain or palpitations Respiratory/Chest Respiratory/Chest: Denies cough or dyspnea Gastrointestinal Gastrointestinal: Denies nausea or vomiting Genitourinary Genitourinary ED: Denies dysuria or hematuria Musculoskeletal Musculoskeletal: Reports neck pain; Denies back pain Integumentary Denies abscess or rash Neurologic Neurologic: Denies headache(s) or weakness Allergic/Immunologic Allergic/Immunologic ED: Denies mouth swelling or urticaria EXAM Physical Exam Const Vital Signs: 10/06/22 18:04 10/06/22 20:07 Temperature 98 F Temperature Source Temporal Pulse Rate 76 Respiratory Rate 14 Respiratory Pattern Normal Blood Pressure 112/88 H Blood Pressure Mean 96 Pulse Ox 98 Oxygen Delivery Method Room Air Positive well nourished and well developed General Appearance ED: well developed and NAD HEENT Reports moist mucous membranes Neck supple and no JVD Neck Narrative: There is tenderness over the left cervical paraspinal muscles. There is no midline tenderness. There is no bony crepitance or step-off. Chest Wall Chest Narrative: There is tenderness over the left sternoclavicular joint. There is some mild edema over this area. There is no bony crepitance or step-off. There is no erythema or warmth noted. Resp normal respiratory effort and clear to auscultation bilaterally Cardio regular rate and regular rhythm GI non-tender and non-distended Palpation: soft Neuro oriented x3, CN's II-XII intact bilaterally and no sensory deficits noted Sensorium / Orientation: alert Motor Exam: strength 5/5 throughout Psych mental status grossly normal MDM MDM MDM Narrative Medical decision making narrative: Differential diagnosis includes cervical strain, torticollis, sternoclavicular joint inflammation and arthritis, and infection. CBC will be obtained to assess for leukocytosis and anemia. Basic metabolic profile will be obtained to assess for electrolyte abnormality and renal function. Chest x-ray will be obtained to assess for pneumonia and sternoclavicular joint arthritis. History & Record Review Discussion w/independent historian: Patient Additional record(s) reviewed:: Prior ED visit and Prior labs Lab Data Attestation: I reviewed the patient's lab results. Lab results narrative: CBC was reviewed and was within normal limits. Basic metabolic profile was reviewed and was essentially within normal limits. Labs: Laboratory Results - last 24 hr 10/06/22 21:00 WBC 9.5 RBC 4.97 Hgb 12.8 L Hct 41.3 MCV 83.1 MCH 25.8 L MCHC 31.0 L RDW Std Deviation 43.5 RDW Coeff of John 14.4 Plt Count 489 H MPV 8.7 Immature Gran % (Auto) 0.500 Neut % (Auto) 66.8 Lymph % (Auto) 23.4 [place] % (Auto) 7.4 Eos % (Auto) 1.3 Baso % (Auto) 0.6 Absolute Neuts (auto) 6.3 Absolute Lymphs (auto) 2.22 Nucleated RBC % 0 Sodium 135 L Potassium 3.8 Chloride 102 Carbon Dioxide 30.0 Anion Gap 3 L BUN 5 L Creatinine 0.91 Estim Creat Clear Calc 89.44 Est GFR (MDRD) Af Amer 117 Est GFR (MDRD) Non-Af 97 BUN/Creatinine Ratio 5.5 L Glucose 121 H Calcium 9.9 Radiography Chest X-Ray - ED: 2 View, Read by ED Physician, Read by Radiologist and No Acute Disease Diagnostic Testing: Clinical Impression(s) from Imaging Studies Chest X-Ray 10/06/22 21:00 IMPRESSION: Chest with no acute disease. Electronically Signed: Horacio Bernstein MD at 21:17 EDT , PA and lateral chest x-ray was obtained. There are 2 views. On my independent interpretation, lung mendez are clear. There is normal cardiac silhouette. Bony thorax is normal. There is no acute process noted. Radiologist also interpreted the x-ray and agrees. Treatment and Re-Evaluation :: Patient was given injection of Toradol here. Since the patient is recently recovering from opiate addiction, I do not want to give the patient any opiates for analgesia. With a normal white blood cell count and no midline pain, I do not feel this is from meningitis or any infectious process. Patient was advised of his findings. Patient was instructed to follow-up with his primary care physician in 5 to 7 days. Patient was instructed take ibuprofen as needed for pain. Patient understood and was agreeable with the plan. All questions were answered. Discharge Plan Triage Chief Complaint: Other, Pain/Inj ED Provider: Heber Pratt Dx/Rx/DC Orders Clinical Impression: Sternoclavicular joint pain, Acute cervical myofascial strain Instructions: ED Arthralgia, ED Neck Sprain or Strain Prescriptions: No Action NK Primary Care Provider: Care Physician,No Primary Referrals: Silke Deras [Non-Staff] - 5-7 Days Care Physician,No Primary [Primary Care Provider] - Disposition Disposition: Home, Self Care
[2022-10-06 22:08] VITALS: BP 115/76; PULSE 79; RESP 16; O2SAT 98
== END 2022-10-06 22:14 | disposition home or self-care (01) ==
PROVIDERS: Emergency Provider Emergency Medicine; Visit Provider Emergency Medicine
DX: S16.1XXA Strain of muscle, fascia and tendon at neck level, initial encounter (principal); F17.210 Nicotine dependence, cigarettes, uncomplicated; M25.59 Pain in other specified joint
CPT/HCPCS: 71046; 80048; 85025; 96374; 99283; A4216

== ENCOUNTER 2023-05-12 12:36 | Emergency (ER) | payer MEDICAID, SELFPAY ==
[2023-05-12 12:37] VITALS: BP 112/82; PULSE 76; RESP 18; TEMP 36.4; O2SAT 100; BMI 19.5
--- NOTE | 2023-05-12 13:13 | ED.VIS.BACK ---
HPI History of Present Illness Chief Complaint: Back Informant: patient Onset/Context/Timing Onset: Weeks (1) Context: Sudden Onset Timing: Continuous Quality: Sharp Location: Lumbar and Left Leg Worsened by: improves with Movement Relieved by: Nothing Associated Symptoms Associated Symptoms: Radiation to Left Leg; Negative for Numbness, Tingling, Radiation to Right Leg, Fever, Abdominal Pain, Dysuria, Unable to Ambulate, Unable to Transfer, Urinary Retention, Urinary Incontinence, Constipation or Fecal Incontinence Narrative Narrative: Patient presents with back pain that has been constant for the past week. Patient states he saw urgent care yesterday. Patient states they did x-rays there and told him that he had some degenerative changes in his back. Patient states that they also told him that he would need to come to the emergency department for CT scan. Patient states his pain is still persistent today so he came to the emergency department today. Patient states his pain began suddenly when he rolled over while sleeping. Patient states the pain does radiate into his left leg. Patient states it is worse with movement. Patient describes it as sharp and stabbing. Patient states this pain is constant. Patient denies any paresthesias or weakness. Patient denies any bowel or bladder changes. Patient denies any saddle anesthesia. PFSH PFSH Medical History Fentanyl dependence Smoker Home Medications cyclobenzaprine 10 mg tablet 10 mg PO QHS PRN PRN Muscle Spasm #10 TABLETS 05/12/23 [Rx Last Taken Unknown] naproxen 500 mg tablet 500 mg PO BID PRN #20 tabs 05/12/23 [Rx Last Taken Unknown] Allergy/AdvReac Type Severity Reaction Status Date / Time No Known Allergies Allergy Verified 05/12/23 12:37 Family History Other Heart disease Social History Smoking Status: Current every day smoker tobacco type: cigarettes ROS ROS ED Constitutional Constitutional ED: Denies chills or fever(s) Eyes Eyes: Denies blurry vision or change in vision ENT ENT ED: Denies rhinorrhea or sore throat Cardiovascular Cardiovascular: Denies chest pain or palpitations Respiratory/Chest Respiratory/Chest: Denies cough or dyspnea Gastrointestinal Gastrointestinal: Denies nausea or vomiting Genitourinary Genitourinary ED: Denies dysuria or hematuria Musculoskeletal Musculoskeletal: Reports back pain and neck pain Integumentary Denies abscess or rash Neurologic Neurologic: Denies headache(s) or weakness Allergic/Immunologic Allergic/Immunologic ED: Denies mouth swelling or urticaria EXAM Physical Exam Const Vital Signs: 05/12/23 12:37 Temperature 97.5 F L Temperature Source Temporal Pulse Rate 76 Respiratory Rate 18 Blood Pressure 112/82 H Blood Pressure Mean 92 Pulse Ox 100 Oxygen Delivery Method Room Air Positive well nourished and well developed General Appearance ED: well developed and NAD HEENT Reports moist mucous membranes Neck supple and no JVD Resp normal respiratory effort and clear to auscultation bilaterally Cardio regular rate and regular rhythm GI soft to palpation, non-tender and non-distended Back/Spine normal to inspection Back/Spine Narrative: There is tenderness over the lumbar paraspinal muscles bilaterally, worse on the right. There is no bony crepitance or step-off noted. There is some mild spasm of the lumbar paraspinal muscles, worse on the right. Range of motion was limited in all motions of the lumbar spine secondary to pain. Straight leg raises were negative bilaterally. Strength is 5/5 bilaterally in the lower extremities. There are no sensory deficits noted. Deep tendon reflexes are 2/4 bilaterally. Lumbar Spine / Lower Back: ROM limited and straight leg raise negative bilaterally Neuro oriented x3 and no sensory deficits noted Sensorium / Orientation: alert Motor Exam: strength 5/5 throughout Deep Tendon Reflexes: Rt Patellar (L4): 2+, Lt Patellar (L4): 2+, Rt Ankle (S1): 2+ and Lt Ankle (S1): 2+ Deep Tendon Reflexes Back: Rt Patellar (L4): 2+, Lt Patellar (L4): 2+, Rt Ankle (S1): 2+ and Lt Ankle (S1): 2+ Psych mental status grossly normal MDM MDM MDM Narrative Medical decision making narrative: Differential diagnosis includes lumbosacral strain, degenerative arthritis, ureteral calculus, and lumbar radiculopathy. CT scan of the abdomen pelvis will be obtained to assess for ureteral calculus. CBC will be obtained to assess for leukocytosis and anemia. Basic metabolic profile will be obtained to assess for electrolyte abnormality and kidney function. Urinalysis will be obtained to assess for urinary tract infection and hematuria. Lab Data Attestation: I reviewed the patient's lab results. Lab results narrative: CBC was reviewed and was within normal limits. Basic metabolic profile was reviewed and was within normal limits. Urinalysis was reviewed. There is no evidence of urinary tract infection or hematuria. Labs: Laboratory Results - last 24 hr 05/12/23 14:13 WBC 8.3 RBC 5.27 Hgb 13.6 Hct 43.0 MCV 81.6 MCH 25.8 L MCHC 31.6 L RDW Std Deviation 48.0 H RDW Coeff of John 16.0 H Plt Count 376 MPV 9.2 Immature Gran % (Auto) 0.200 Neut % (Auto) 58.7 Lymph % (Auto) 31.9 [place] % (Auto) 7.1 Eos % (Auto) 1.6 Baso % (Auto) 0.5 Absolute Neuts (auto) 4.9 Absolute Lymphs (auto) 2.64 Nucleated RBC % 0 Sodium 141 Potassium 3.6 Chloride 106 Carbon Dioxide 29.0 Anion Gap 6 BUN 9 Creatinine 0.89 Estim Creat Clear Calc 86.78 Est GFR (MDRD) Af Amer 121 Est GFR (MDRD) Non-Af 100 BUN/Creatinine Ratio 10.1 Glucose 89 Calcium 9.7 Urine Color Yellow Urine Clarity Clear Urine pH 7.0 Ur Specific [place] 1.010 Urine Protein Negative Urine Glucose (UA) Normal Urine Ketones Negative Urine Occult Blood Negative Urine Nitrite Negative Urine Bilirubin Negative Urine Urobilinogen Normal Ur Leukocyte Esterase Negative Urine RBC 0 SEEN Urine WBC 0 SEEN Ur Squamous Epith Cells 0-5 SEEN Urine Bacteria 0 SEEN Urine Mucus 0 SEEN Radiography Diagnostic Testing: Clinical Impression(s) from Imaging Studies Abdomen/Pelvis CT 05/12/23 13:54 IMPRESSION: Diffuse bladder wall thickening. This is more prominent along the anterior superior aspect of the urinary bladder. Moderate amount of fecal material is seen in the colon. Electronically Signed: Mat Alvarado MD at 15:22 EST , CT scan of the abdomen pelvis was obtained. There is some diffuse bladder wall thickening. There is moderate amount of fecal material seen in the colon. There are degenerative changes noted of the lumbar spine. There is mild anterior spondylolisthesis noted at the L3-L4 level. This was interpreted by the radiologist and was also independently reviewed by myself. Treatment and Re-Evaluation Narrative: Patient was given injection of Toradol. Patient drove himself and was not given Norflex. Patient is feeling better on reevaluation. Patient was advised of his findings. Patient was instructed to use ice to the area. Patient was given prescriptions for Naprosyn and Flexeril. Patient was instructed to follow-up with his primary care physician in 5 to 7 days. Patient understood and was agreeable with the plan. All questions were answered. Discharge Plan Triage Chief Complaint: Back ED Provider: Heber Pratt Dx/Rx/DC Orders Clinical Impression: Acute lumbosacral myofascial strain, Tobacco use disorder Instructions: ED Back Sprain/Strain Prescriptions: New cyclobenzaprine [cyclobenzaprine] 10 mg tablet 10 mg PO QHS PRN PRN (Reason: Muscle Spasm) Qty: 10 0RF naproxen 500 mg tablet 500 mg PO BID PRN Qty: 20 0RF Primary Care Provider: Care Physician,No Primary Referrals: Cassandra Rutledge DO [Med Staff - Active Staff] - 5-7 Days Care Physician,No Primary [Primary Care Provider] - Disposition Disposition: Home, Self Care
--- NOTE | 2023-05-12 13:54 | CT_ITS ---
STUDY: CT ABDOMEN AND PELVIS WITHOUT CONTRAST REASON FOR EXAM: Male, 42 years old. One week history of low back pain and weight loss. RADIATION DOSAGE (If Supplied By Facility): CTDIvol = ( 6.04 ) mGy, DLP = ( 283.89 ) mGycm TECHNIQUE: Transaxial images were obtained from the dome of the diaphragm to the symphysis pubis without oral contrast, and without intravenous contrast. Sagittal and coronal images were reconstructed. Individualized dose optimization techniques were used for this CT. COMPARISON: Comparison is made with prior study dated August 24, 2017. FINDINGS: Minimal increased linear marking in the left lower lobe suggestive of atelectasis. The visualized portions of the heart are within normal limits. Normal liver. Normal gallbladder and extrahepatic biliary system. Normal spleen. Normal pancreas. Normal bilateral adrenal glands. Normal right kidney. Normal left kidney. Normal visualized stomach. Normal small intestine. Moderate amount of fecal material is seen in the colon. The appendix is visualized and appears normal. There is scattered atherosclerotic calcification of the abdominal aorta, without a demonstrated aneurysm. Normal inferior vena cava. Normal retroperitoneum. Diffuse bladder wall thickening. Normal abdominal wall. Mild degree of anterior spondylolisthesis at the L3-L4 level. CT/Abdomen/Pelvis without Cont IMPRESSION: Diffuse bladder wall thickening. This is more prominent along the anterior superior aspect of the urinary bladder. Moderate amount of fecal material is seen in the colon. Electronically Signed: Mat Alvarado MD at 15:22 EST ,
[2023-05-12] MEDS: Ketorolac 30 MG/ML Syringe IV (14:05)
[2023-05-12] MEDS: 0.9% Normal Saline (1000mL) 1,000 ML 1000 ML IV (14:05)
[2023-05-12] MEDS: Orphenadrine 60 MG/2 ML Ampul IM (14:05)
[2023-05-12 14:19] LABS: Bacteria 0 SEEN /hpf (None Seen); Mucous, Urine 0 SEEN /hpf (<or=2+); Red Blood Cells-Urine 0 SEEN /hpf (0-5); White Blood Cells 0 SEEN /hpf (0-5)
[2023-05-12 14:21] LABS: Absolute Lymphocyte Count 2.64 X10^3/uL (0.83-4.51); Absolute Neutrophil Count 4.9 X10^3/uL (2.0-7.7); Basophil# 0.04 X10^3/uL; Basophil% 0.5 % (0-1); Eosinophil# 0.13 X10^3/uL; Eosinophils% 1.6 % (0-5); Hemoglobin 13.6 g/dL (13.0-16.5); Lymphocyte # 2.64 X10^3/ul (0.83-4.51); Lymphocyte % 31.9 % (19-41); Mean Corp Hgb Conc 31.6 g/dL (32-36); Mean Corpuscular Hgb 25.8 pg (27.0-32.0); Mean Corpuscular Volume 81.6 fL (80-94); Mean Platelet Vol. 9.2 fl (6.2-12.0); Monocyte# 0.59 X10^3/uL; Monocyte% 7.1 % (0-10); NRBC Flagged by Analyzer 0 % (0-5); Neutrophil # 4.85 X10^3/uL (2.7-7.7); Neutrophil % 58.7 % (47-70); Platelet Count 376 K/mm3 (150-450); Red Blood Count 5.27 M/mm3 (4.6-6.2); White Blood Count 8.3 K/mm3 (4.4-11.0)
[2023-05-12 14:22] LABS: Color, Urine Yellow (Yellow); Glucose, Dipstick Normal (Normal); Ketone-Dipstick Negative (Negative); Leukocyte Esterase-Dipstick Negative /ul (Negative); Nitrite-Dipstick Negative (Negative); Occult Blood-Urine Negative /ul (Negative); Protein-Dipstick Negative (Negative); Urine Bilirubin Dipstick Negative (Negative); Urine Clarity Clear (Clear); Urine Urobilinogen Normal (Normal)
[2023-05-12 14:33] LABS: Anion Gap 6 (5-15); BUN 9 mg/dL (7-18); BUN/Creat Ratio 10.1 RATIO (10-20); Calcium,Total 9.7 mg/dL (8.5-10.1); Chloride 106 mmol/L (98-107); Creatinine, Serum 0.89 mg/dL (0.70-1.30); EST Glomerular Filtration Rate 100 mL/min (>60); Est Glom Filt Rate - Afr Amer 121 mL/min (>60); Estimated Creatinine Clearance 86.78 ml/min; Glucose 89 mg/dL (74-106); Potassium 3.6 mmol/L (3.5-5.1); Sodium Level 141 mmol/L (136-145); Squamous Epithelial Cells - UA 0-5 SEEN /hpf (0-5)
[2023-05-12 16:34] VITALS: BP 100/65; PULSE 53; RESP 16; TEMP 36.7; O2SAT 98
--- OUTSIDE RECORDS SUMMARY | 2023-05-12 18:09 | XMS RPT_ITS | CCD ---
Author Name Unknown Address [address] [place] [address] Organization [facility] Care Team Providers Care Ethnic Studies Professor Name Role Phone NICKOLAS SOLARES Attending Unavailable NICKOLAS SOLARES Admitting Unavailable NICKOLAS SOLARES Primary Care Unavailable CSERNYIKBAIRON DO Admitting Unavailable CSERNYIK, BAIRONSOLOMON MCKEE Primary Care Unavailable CSERNYIKBAIRON DO Attending Unavailable ODELL, REVA PAC Consulting Unavailable ODELL, REVA PAC Referring Unavailable PROVIDER, UNKNOWN Consulting Unavailable NICKOLAS SOLARES Attending Unavailable NICKOLAS SOLARES Admitting Unavailable NICKOLAS SOLARES Primary Care Unavailable ODELL, REVA PAC Consulting Unavailable ECHEVERRIA LIBBY FRENCH BINDING FOLDER Admitting Unavailable ECHEVERRIA, LIBBY FRENCH BINDING FOLDER Primary Care Unavailable ECHEVERRIA, LIBBY FRENCH BINDING FOLDER Attending Unavailable PROVIDER, UNKNOWN Consulting Unavailable ODELL, REVA PAC Consulting Unavailable ODELL, REVA PAC Referring Unavailable STEPHANIE DELUCA MD Admitting Unavailable STEPHANIE DELUCA MD Primary Care Unavailable STEPHANIE DELUCA MD Attending Unavailable PROVIDER, UNKNOWN Consulting Unavailable THOMAS KELLEY MD Primary Care Unavailable THOMAS KELLEY MD Attending Unavailable ODELL, REVA PAC Consulting Unavailable ODELL, REVA PAC Referring Unavailable THOMAS KELLEY MD Admitting Unavailable PROVIDER, UNKNOWN Consulting Unavailable Unavailable Primary Care Provider UnavailUSMAN Fang Referring Unavailable USMAN CHEN Referring Unavailable Problems Problem Classification Problem Date Documented Da te Episodic/Chronic Other nutritional; endocrine; and metabolic disorders (1 source) Weight loss; Translations: [Abnormal weight loss] 05-11-2023 Episodic Other nutritional; endocrine; and metabolic disorders (1 source) Abnormal weight loss; Translations: [Weight loss] Onset: 05-11-2023 Episodic Spondylosis; intervertebral disc disorders; other back problems (2 sources) Acute back pain with sciatica; Translations: [Lumbago with sciatica, left side] Onset: 05-11-2023 05-11-2023 Episodic Results Test Name Value Interpretation Reference Range Facil ity Vital Signs Date Time Vital Sign Value Performing Clinician Faci lity 05-11-2023 12:55-0500 Body temperature 98.6 [degF] Usman Chen MD Work Phone: [facility] 05-11-2023 12:55-0500 Body weight 55.34 kg Usman Chen MD Work Phone: [facility] 05-11-2023 12:55-0500 Diastolic blood pressure 68 mm[Hg] Usman Chen MD Work Phone: [facility] 05-11-2023 12:55-0500 Heart rate 78 /min Usman Chen MD Work Phone: [facility] 05-11-2023 12:55-0500 Respiratory rate 16 /min Usman Chen MD Work Phone: [facility] 05-11-2023 12:55-0500 SaO2% (BldA) [Mass fraction] 98 % Usman Chen MD Work Phone: [facility] 05-11-2023 12:55-0500 Systolic blood pressure 110 mm[Hg] Usman Chen MD Work Phone: [facility] Encounters Encounter Date Encounter Type Care Provider Facility Start: 05-11-2023 End: 05-12-2023 ambulatory USMAN CHEN Facility:[facility] Start: 05-11-2023 End: 05-11-2023 ambulatory USMAN CHEN Facility:[facility] Start: 05-11-2023 End: 05-11-2023 Patient encounter procedure Usman Chen MD Work Phone: [facility] Procedures Date Procedure Procedure Detail Performing Clinician Start: 08-26-2022 Urinalysis NICKOLAS STRICKLAND Plan of Treatment Date Care Activity Detail Author Start: 03-30-2023 Depression Assessment Depression Ass essment [facility] Start: 11-28-2022 Influenza vaccination Influenza Vacc ine (#1) [facility] Start: 10-12-2019 Urine microalbumin profile DTa P,Tdap,Td Vaccine (2 - Td or Tdap) [facility] Start: 09-23-2015 [facility] Start: 1998 [facility] Start: 03-24-1981 Covid-19 Vaccine (#1) Covid-19 Vacci ne (#1) [facility] Start: 1980 Hepatitis B Vaccine (1 of 3 - 3-dose series) Hepatitis B Vaccine (1 of 3 - 3-dose series) [facility] Payers Date Payer Category Payer Medicaid [facility] MEDICA[facility] [employer] [place] [id number] 2022-Present [phone] [address] [place] [address] Medicaid [id number] 2022 Unknown [id number] 1980 Unknown [id number] 1980 Unknown [id number] 1980 Unknown [id number] 1980 Unknown [id number] 1980 Unknown [id number] 1980 Unknown [id number] Unknown [id number] Social History Date Type Detail Facility [facility] Start: 1980 Sex Assigned At Not on file [facility] Gender identity Not on file [facility] inic Progress note 05-11-2023 Note Date & Type Note Facility 05-11-2023 Note HNO ID: [id number] Author: LILLY RAMIREZ RT(R) Service: Radiology Author Type: Technologist Type: Progress Notes Filed: 05/11/2023 13:33 Note Text: Radiology Service Progress Note PATIENT NAME: Juan Carlos Stewart DATE OF SERVICE: May 11, 2023 TIME: 1:22 PM PATIENT IDENTITY VERIFICATION COMPLETED USING TWO (2) IDENTIFIERS: Name and Date of confirmed by patient verbally. FALL SCREENING: Has the patient had 2 falls in the last year or 1 fall with injury or currently using an Ambulatory Assistive Device (Walker, Cane, Wheelchair, Crutches, etc.)? No PATIENT GENDER DATA: Male PATIENT RELEVANT IMPLANT DATA REVIEWED: Yes PATIENT PRESENTS WITH AN IMPLANTABLE OR ATTACHED FINISH REPAIR WORKER: No RADIOLOGY DEPARTMENT: General X-ray: Exam(s) Completed: Spine X-Ray(s): Lumbar AP / LAT / L5-S1 PERIPHERAL IV DATA: Not applicable SIGNED BY: RT Baltazar(R) May 11, 2023 1:22 PM [facility] Progress note 05-11-2023 Note Date & Type Note Facility 05-11-2023 Note HNO ID: [id number] Author: USMAN CHEN MD Service: ? Author Type: Physician Type: Progress Notes Filed: 05/11/2023 14:13 Note Text: Patient presents with: Low Back Pain: x 3 months, lost 30lbs in last 1-2 months HPI: Back pain: Duration: 3 months. He was seen at an Urgent Care in [place] last week. He was advised to schedule with primary care, but has not been able to find one to establish with. Character: aching and sharp Location: left lower Radiation: right leg last week a few times, consistently down the back of the left leg Aggravating: bending, lifting, and twisting Relieving: heat Pain relievers: naproxen and flexeril Associated: 30# weight loss 1-2 months, had COVID in February, bums under the skin at the waist (lymph nodes?) Pertinent negatives: Denies numbness or weakness, fever, loss of bladder or bowel control. Imaging: xrays last year MEDICATIONS: No prescriptions on file. ALLERGIES: ALLERGIES No Known Allergies VITALS: BP 110/68 Pulse 78 Temp 37 ?C (98.6 ?F) Resp 16 Wt 55.3 kg (122 lb) SpO2 98% HYSICAL EXAM: GEN: pleasant, no acute distress, alert, accompanied by his significant other. NECK: Supple, no lymphadenopathy, no thyromegaly. HEART: regular rate, regular rhythm, no murmurs LUNGS: clear to auscultation, no wheezes or crackles, no increased WOB ABD: soft, non-distended, no masses palpated, non-tender, palpable inguinal lymph nodes bilaterally EXT: no clubbing, no cyanosis, no edema BACK: Normal curvature of spine. Painful transitions. Lower lumbar (3-5) midline tenderness. Left lumbosacral paraspinal tenderness. Straight leg test positive on the left. Deep tendon reflexes 2+/4 at patellas and Achilles tendons. Normal lower extremity strength. ASSESSMENT/PLAN: 1. Acute left-sided low back pain with left-sided sciatica - ICD9: 724.2, 724.3, ICD10: M54.42 (primary diagnosis) - ESTABLISH WITH PRIMARY CARE - NEW PATIENT - XR LUMBAR GENERAL 3V AP/LAT/L5-S1 no lytic lesions or fractures There is preservation of the vertebral body height. There is mild to moderate disc space narrowing at T12/L1. There is mild disc space narrowing at L1/L2. There is marginal osteophyte formation at L3/L4. There is mild disc space narrowing at L5/S1. There is mild facet joint arthrosis at L4/L5 and L5/S1. 2. Weight loss - ICD9: 783.21, ICD10: R63.4 New to [facility] system. He did weight 140# 08/25/ by outside records for a back pain visit. Scheduled with - ESTABLISH WITH PRIMARY CARE - NEW PATIENT Labs today. Seek immediate evaluation for loss of bladder or bowel control, unexplained fever, or progressive weakness or numbness. - COMP METABOLIC PANEL - CBC + DIFF - TSH BLD - XR LUMBAR GENERAL 3V AP/LAT/L5-S1 Usman Chen MD [facility] History of Present illness Narrative 05-11-2023 Usman Chen MD - 05/11/2023 1:03 PM EST Note Date & Type Note Facility 05-11-2023 History of Presen t illness Narrative Patient presents with: Low Back Pain: x 3 months, lost 30lbs in last 1-2 months HPI: Back pain: Duration: 3 months. He was seen at an Urgent Care in [place] last week. He was advised to schedule with primary care, but has not been able to find one to establish with. Character: aching and sharp Location: left lower Radiation: right leg last week a few times, consistently down the back of the left leg Aggravating: bending, lifting, and twisting Relieving: heat Pain relievers: naproxen and flexeril Associated: 30# weight loss 1-2 months, had COVID in February, bums under the skin at the waist (lymph nodes?) Pertinent negatives: Denies numbness or weakness, fever, loss of bladder or bowel control. Imaging: xrays last year MEDICATIONS: No prescriptions on file. ALLERGIES: ALLERGIES No Known Allergies VITALS: BP 110/68 Pulse 78 Temp 37 C (98.6 F) Resp 16 Wt 55.3 kg (122 lb) SpO2 98% HYSICAL EXAM: GEN: pleasant, no acute distress, alert, accompanied by his significant other. NECK: Supple, no lymphadenopathy, no thyromegaly. HEART: regular rate, regular rhythm, no murmurs LUNGS: clear to auscultation, no wheezes or crackles, no increased WOB ABD: soft, non-distended, no masses palpated, non-tender, palpable inguinal lymph nodes bilaterally EXT: no clubbing, no cyanosis, no edema BACK: Normal curvature of spine. Painful transitions. Lower lumbar (3-5) midline tenderness. Left lumbosacral paraspinal tenderness. Straight leg test positive on the left. Deep tendon reflexes 2+/4 at patellas and Achilles tendons. Normal lower extremity strength. ASSESSMENT/PLAN: 1. Acute left-sided low back pain with left-sided sciatica - ICD9: 724.2, 724.3, ICD10: M54.42 (primary diagnosis) - ESTABLISH WITH PRIMARY CARE - NEW PATIENT - XR LUMBAR GENERAL 3V AP/LAT/L5-S1 no lytic lesions or fractures There is preservation of the vertebral body height. There is mild to moderate disc space narrowing at T12/L1. There is mild disc space narrowing at L1/L2. There is marginal osteophyte formation at L3/L4. There is mild disc space narrowing at L5/S1. There is mild facet joint arthrosis at L4/L5 and L5/S1. 2. Weight loss - ICD9: 783.21, ICD10: R63.4 New to [facility] system. He did weight 140# 08/25/13 by outside records for a back pain visit. Scheduled with - ESTABLISH WITH PRIMARY CARE - NEW PATIENT Labs today. Seek immediate evaluation for loss of bladder or bowel control, unexplained fever, or progressive weakness or numbness. - COMP METABOLIC PANEL - CBC + DIFF - TSH BLD - XR LUMBAR GENERAL 3V AP/LAT/L5-S1 Usman Chen MD documented in this encounter [facility] History and physical note 09-01-2022 Note Date & Type Note Facility 09-01-2022 [facility] HISTORY & PHYSICAL NAME ACCOUNT SEX AGE ADMIT DISCHARGE PT MED. RECORD# NUMBER DATE DATE TYPE FRANCES [id number] M 41 08/26/22 08/26/22 2 JUAN CARLOS Armenta [id number] ROOM: 311MO DATE OF : 80 DICTATING PHYSICIAN: Stephanie Deluca CHIEF COMPLAINT: Chest pain. HISTORY OF PRESENT ILLNESS: This is a 41-year-old male with a past medical history significant for drug abuse. He is on Suboxone. He came to the Emergency Room after having left-sided chest pain, sharp, with no radiation to his arms, neck or back. He stated it was sharp and stabbing. He came to the Emergency Room. In the Emergency Room, initial cardiac work-up was negative. The chest pain improved, and he was admitted for observation status. PAST MEDICAL HISTORY: Past drug abuse with opioids and previous overdose on Suboxone. PAST SURGICAL HISTORY: None. MEDICATIONS: Suboxone as directed twice daily. ALLERGIES: No known drug allergies. FAMILY HISTORY: Both parents are alive and healthy. SOCIAL HISTORY: He lives at home. He does not smoke. He denies illicit drug use. REVIEW OF SYSTEMS: He denies any headache or acute visual changes. No recent weight changes, fever or chills. No chest pain. This resolved since admission. No nausea, vomiting, or bowel or bladder changes. PHYSICAL EXAMINATION GENERAL APPEARANCE: The patient was lying in bed in no acute distress. He is alert and cooperative. VITAL SIGNS: Blood pressure is 114/76, heart rate 55, respirations 18, temperature 98.3, oxygen saturation 97% on room air, and weight 139 pounds with a BMI of 21.8. HEENT: Unremarkable. NECK: Supple. No JVD. Page 1 of 3 JUAN CARLOS STEWART History & Physical JUAN CARLOS STEWART :1980 LUNGS: Normal respiratory effort, equal lung expansion, and clear to auscultation bilaterally. HEART: Regular rate and rhythm. ABDOMEN: Positive bowel sounds, soft and nontender. EXTREMITIES: Free of edema. NEUROLOGIC: He is alert and able to answer questions appropriately. DIAGNOSTIC DATA: White count is 9.8, hemoglobin 12.8, and hematocrit 39.4. D-dimer is 168. Creatinine is 0.93. Alkaline phosphatase is 142. Albumin is 3.2. Urinalysis with negative nitrites and negative leukocytes. Chest x-ray with no infiltrate. IMPRESSION: Chest pain, atypical. PLAN: He was admitted for observation status. The chest pain has resolved. Initial cardiac work-up was negative. He was placed prophylactically on aspirin and a statin until cardiac work-up can be completed. He will undergo a nuclear stress test. If it is negative, he will be discharged home. All other medical conditions appear stable at present. Dictated by delia Jiang for Dr. Deluca. I evaluated the patient myself the accurate E&M above is done by me Dada Deluca MD Dictated By: Stephanie Deluca MD 08/26/22 13:44 JOB #: [id number] Transcribed By: pramod 08/27/22 06:21 Electronically signed by: E-Sign: STEPHANIE DELUCA MD 08/31/22 22:10 Update to H&P: [ ] No changes: I have examined the patient and reviewed the H&P and there are no changes. [ ] As previously dictated with the following changes: Page 2 of 3 FRANCESJUAN CARLOS OJEDA History & Physical FRANCESJUAN CARLOS OJEDA :1980 PHYSICIAN SIGNATURE: TIME: DATE: Page 3 of 3 FRANCESJUAN CARLOS OJEDA History & Physical [facility] Discharge summary note 08-31-2022 Note Date & Type Note Facility 08-31-2022 Note [facility] DISCHARGE SUMMARY NAME ACCOUNT SEX AGE ADMIT DISCHARGE PT MED. RECORD# NUMBER DATE DATE TYPE FRANCES [id number] 41 08/26/22 08/26/22 2 JUAN CARLOS Armenta [id number] ROOM: 311MO DATE OF : 1980 ATTENDING PHYSICIAN: Stephanie Deluca CHIEF COMPLAINT ON ADMISSION: Chest pain, which resolved. FINAL DIAGNOSIS: Left against medical advice. HISTORY OF PRESENT ILLNESS: This is a 41-year-old male who is on Suboxone. He has a history of opioid addiction. He has been taking his Suboxone as scheduled. He is doing well. He experienced sharp chest pain and came to the Emergency Room. Initial cardiac work-up was negative. PHYSICAL EXAMINATION: Vital signs were stable. His lungs were clear. His heart was a regular rate and rhythm. HOSPITAL COURSE: He was admitted to observation. He was scheduled for a nuclear stress test. A history and physical was completed. He told the nursing staff later in the afternoon that he was called by [employer] [facility] [employer] [facility] to do a random drug test, and if he was not present he would not be able to see his kids for a month. [employer] Coordinator was contacted, and before they could call back the patient left AMA, and I was notified. MEDICATIONS ON DISCHARGE: He left without getting any discharge medications. DISCHARGE INSTRUCTIONS/PLAN: He left without getting any discharge instructions. I evaluated the patient myself the accurate E&M above is done by me Dada Deluca MD Dictated by delia Jiang for Dr. Deluca. Dictated By: Stephanie Deluca MD 08/27/22 10:26 JOB #: [id number] Transcribed By: pramod 08/28/22 09:34 Electronically signed by: E-Sign: STEPHANIE DELUCA MD 08/31/22 21:58 Page 1 of 1 JUAN CARLOS STEWART Discharge Summary [facility] Evaluation note Note Date & Type Note Facility documented in this encounter [facility] Reason for referral (narrative) Diagnostic Procedure Only (Urgent) - Closed Note Date & Type Note Facility Referral ID Status Reason Start Date Expiration Date V isits Requested Visits Authorized [id number] Closed Auto-Generate d Referral 05/11/2023 06/09/2024 1 1 * Consult, Test, Treat (Routine) - Authorized Specialty Diagnoses / Procedures Referred By Contac t Referred To Contact Diagnoses Acute left-sided low back pain with left-sided sciatica Weight loss Procedures ESTABLISH WITH PRIMARY CARE NEW PATIENT OFFICE/OUTPATIENT [facility] 60 MINUTES Usman Chen MD [address] [place] [address] Referral ID Status Reason Start Date Expiration Date Visits Requested Visits Authorized [id number] Authorized PCP Requested Referral 05/11/2023 05/10/2024 1 1 [facility] Summary Purpose Family History No Family History Records FoundNo Family History Records FoundNo Family History Records Found Advance Directives No Advanced Directives Records FoundNo Advanced Directives Records FoundNo Advanced Directives Records Found Additional Source Comments (unrecognized sect ion and content) No Status Records FoundNo Status Records FoundNo Status Records Found INFORMATION SOURCE (unrecogn ized section and content) DATE CREATED AUTHOR AUTHOR'S ORGANIZ ATION 03/12/2023 [facility] DATE CREATED AUTHOR AUTHOR'S ORGANIZ ATION 05/12/2023 [facility] Source Comments (unrecognize d section and content) In the event this informatio n is protected by the Federal Confidentiality of Alcohol and Drug Abuse Patient Records regulations: The Federal rules restrict any use of the information to criminally investigate or prosecute any alcohol or drug abuse patient.[facility] Reason for Visit (unrecogniz ed section and content) FOR RECORDS PERTAINING TO PATIENTS WHO ARE OR HAVE BEEN ENROLLED IN A CHEMICAL DEPENDENCY/SUBSTANCEABUSE PROGRAM, SOME INFORMATION MAY BE OMITTED. This clinical summary was aggregated from multiple sources. Caution should be exercised in using it in the provision of clinical care. This summary normalizes information from multiple sources, and as a consequence, information in this document may materially change the coding, format and clinical context of patient data. In addition, data may be omitted in some cases. CLINICAL DECISIONS SHOULD BE BASED ON THE PRIMARY CLINICAL RECORDS. [employer] provides no warranty or guarantee of the accuracy or completeness of information in this document.
== END 2023-05-12 16:30 | disposition home or self-care (01) ==
PROVIDERS: Emergency Provider Emergency Medicine; Visit Provider Emergency Medicine
DX: S39.012A Strain of muscle, fascia and tendon of lower back, initial encounter (principal); F17.210 Nicotine dependence, cigarettes, uncomplicated; X58.XXXA Exposure to other specified factors, initial encounter; Y93.84 Activity, sleeping
CPT/HCPCS: 74176; 80048; 81001; 85025; 99283; J7030; A4216